=== PATIENT | female | born 1970 | race Caucasian/White ===

== ENCOUNTER 2017-01-26 10:55 | Day surgery (SDC) | payer OTHER ==
[~2017-01-26] VITALS: Ht 179.1 cm; Wt 99.8 kg
[~2017-01-26 10:55] MED LIST: Actigall PO; BACLOFEN10 MG PO; CYMBALTA60 MG PO; ELAVIL25 MG PO; ELAVIL50 MG PO; MELOXICAM7.5 MG PO; MOBIC15 MG PO; MOTRIN600 MG PO; MULTIVITAMIN1 EAC2 PO; NAPROXEN500 MG PO; NEURONTIN300 MG PO; NEURONTIN600 MG PO; NOHOMEMEDS; NORCO 10/3251 TABLET PO; NORCO 5/3251 TABLET PO; PERCOCET 10/1 TABLET PO; PERCOCET 5/31 TABLET PO; PREVACID 24HR15 MG PO; PREVACID15 MG PO; Protonix PO; RELAFEN750 MG PO; TOVIAZ4 MG; TYLENOL ARTHRI650 M2 PO; Ultram PO; VITAMIN D31000 UNIT PO; ZANAFLEX4 MG PO; ZANTAC150 MG PO; percocet; zanaflex
== END 2017-01-26 12:42 | disposition home or self-care (01) ==
LOC: PAIN 10:55
PROC: 3E0S33Z Introduction of Anti-inflammatory into Epidural Space, Percutaneous Approach (ICD-10-PCS; principal; 2017-01-26)
DX: M54.16 Radiculopathy, lumbar region (principal); F41.9 Anxiety disorder, unspecified; M51.36 Other intervertebral disc degeneration, lumbar region; M48.06 Spinal stenosis, lumbar region; M96.1 Postlaminectomy syndrome, not elsewhere classified; K21.9 Gastro-esophageal reflux disease without esophagitis; K76.0 Fatty (change of) liver, not elsewhere classified; E78.5 Hyperlipidemia, unspecified; Z79.891 Long term (current) use of opiate analgesic; E66.9 Obesity, unspecified; Z98.1 Arthrodesis status; Z68.31 Body mass index [BMI] 31.0-31.9, adult; Z88.8 Allergy status to other drugs, medicaments and biological substances
CPT/HCPCS: J1100; J2250; J3010

== ENCOUNTER 2017-03-10 08:58 | Day surgery (SDC) | payer OTHER ==
[~2017-03-10] VITALS: Ht 179.1 cm; Wt 99.8 kg
[~2017-03-10 08:58] MED LIST changes: +LYRICA50 MG PO
== END 2017-03-10 10:45 | disposition home or self-care (01) ==
LOC: PAIN 08:58 → SDC 09:30 → PAIN 10:45
DX: M47.26 Other spondylosis with radiculopathy, lumbar region (principal); M51.16 Intervertebral disc disorders with radiculopathy, lumbar region; M48.06 Spinal stenosis, lumbar region; M54.12 Radiculopathy, cervical region; K21.9 Gastro-esophageal reflux disease without esophagitis; E66.9 Obesity, unspecified; Z68.31 Body mass index [BMI] 31.0-31.9, adult; Z79.891 Long term (current) use of opiate analgesic
CPT/HCPCS: J1100; J2250; J3010

== ENCOUNTER 2017-05-25 12:01 | Day surgery (SDC) | payer OTHER ==
[~2017-05-25] VITALS: Ht 177.8 cm; Wt 99.8 kg
[~2017-05-25 12:01] MED LIST changes: -ELAVIL25 MG PO; +ELAVIL75 MG PO
== END 2017-05-25 14:48 | disposition home or self-care (01) ==
LOC: PAIN 12:01
DX: M47.26 Other spondylosis with radiculopathy, lumbar region (principal); M51.16 Intervertebral disc disorders with radiculopathy, lumbar region; M96.1 Postlaminectomy syndrome, not elsewhere classified; M54.12 Radiculopathy, cervical region; M48.06 Spinal stenosis, lumbar region; M79.7 Fibromyalgia; E78.5 Hyperlipidemia, unspecified; Z86.718 Personal history of other venous thrombosis and embolism; Z79.891 Long term (current) use of opiate analgesic; E66.9 Obesity, unspecified; Z68.31 Body mass index [BMI] 31.0-31.9, adult
CPT/HCPCS: J1030; J2250; J3010; S0020

== ENCOUNTER 2017-06-01 11:58 | Day surgery (SDC) | payer OTHER ==
[~2017-06-01] VITALS: Ht 177.8 cm; Wt 99.8 kg
[2017-06-01] MEDS ORDERED: NAPROXEN500 MG PO (12:23)
== END 2017-06-01 14:00 | disposition home or self-care (01) ==
LOC: PAIN 11:58
DX: M47.26 Other spondylosis with radiculopathy, lumbar region (principal); M51.16 Intervertebral disc disorders with radiculopathy, lumbar region; M79.1 Myalgia; M54.12 Radiculopathy, cervical region; K21.9 Gastro-esophageal reflux disease without esophagitis; E78.5 Hyperlipidemia, unspecified; M48.06 Spinal stenosis, lumbar region; E66.9 Obesity, unspecified; Z68.31 Body mass index [BMI] 31.0-31.9, adult; Z79.891 Long term (current) use of opiate analgesic; Z86.718 Personal history of other venous thrombosis and embolism
CPT/HCPCS: J1030; J2250; J3010; S0020

== ENCOUNTER 2017-08-27 11:59 | Day surgery (SDC) | payer OTHER ==
[~2017-08-27] VITALS: Ht 180.3 cm; Wt 99.3 kg
[~2017-08-27 11:59] MED LIST changes: +CYMBALTA30 MG PO
== END 2017-08-27 14:00 | disposition home or self-care (01) ==
LOC: PAIN 11:59 → SDC 12:30 → PAIN 14:00
DX: M47.22 Other spondylosis with radiculopathy, cervical region (principal); M50.121 Cervical disc disorder at C4-C5 level with radiculopathy; M25.78 Osteophyte, vertebrae; M96.1 Postlaminectomy syndrome, not elsewhere classified; M47.26 Other spondylosis with radiculopathy, lumbar region; M51.16 Intervertebral disc disorders with radiculopathy, lumbar region; M48.061 Spinal stenosis, lumbar region without neurogenic claudication; K21.9 Gastro-esophageal reflux disease without esophagitis; M79.7 Fibromyalgia; E78.5 Hyperlipidemia, unspecified; Z79.891 Long term (current) use of opiate analgesic
CPT/HCPCS: J1030; J1885; J2250; J3010; S0020

== ENCOUNTER 2017-09-03 11:57 | Day surgery (SDC) | payer OTHER ==
[~2017-09-03] VITALS: Ht 180.3 cm; Wt 99.3 kg
== END 2017-09-03 13:50 | disposition home or self-care (01) ==
LOC: PAIN 11:57 → SDC 12:30 → PAIN 13:50
DX: M54.12 Radiculopathy, cervical region (principal); M50.10 Cervical disc disorder with radiculopathy, unspecified cervical region; M96.1 Postlaminectomy syndrome, not elsewhere classified; M79.7 Fibromyalgia; M47.26 Other spondylosis with radiculopathy, lumbar region; M51.16 Intervertebral disc disorders with radiculopathy, lumbar region; M48.061 Spinal stenosis, lumbar region without neurogenic claudication; K21.9 Gastro-esophageal reflux disease without esophagitis; Z79.891 Long term (current) use of opiate analgesic
CPT/HCPCS: J1030; J2250; J3010; S0020

== ENCOUNTER 2018-02-13 10:43 | Emergency (ER) | payer OTHER ==
[~2018-02-13] VITALS: Ht 180.3 cm; Wt 110.5 kg
[~2018-02-13 10:43] MED LIST changes: +ZOMIG ZMT2.5 MG PO
[2018-02-13 12:36] LABS: HEMATOCRIT 42.6 % (36.0-46.0); HEMOGLOBIN 14.3 G/DL (11.9-15.5); MCH 29.8 PG (29.0-34.0); MCHC 33.6 G/DL (30.0-36.0); MCV 88.8 FL (83-99); PLATELET COUNT 196 K/uL (156-360); RBC DIS.WIDTH-CV 12.6 % (11.8-14.6); RBC DIS.WIDTH-SD 41.2 % (39-53); WHITE BLOOD COUNT 5.1 K/uL (4.1-10.2)
[2018-02-13 12:52] LABS: CHLORIDE 104 mEq/L (99-109); POTASSIUM 4.5 mEq/L (3.7-5.4); SODIUM 141 mEq/L (136-147)
[2018-02-13 12:53] LABS: GLUCOSE 103 mg/dL (70-99)
[2018-02-13 12:57] LABS: CREATININE 0.7 mg/dL (0.6-1.3); GFR ESTIMATE (CALCULATED) > 59 mL/min/
[2018-02-13 12:58] LABS: UREA NITROGEN (BUN) 12 mg/dL (9-23)
[2018-02-13 13:06] LABS: ERTH.SED.RATE 25 MM/HR (0-20)
[2018-02-13 14:09] LABS: C-REACTIVE PROTEIN 6.1 MG/L (0-10)
[2018-02-13 16:55] LABS: APPEARANCE HAZY-YELLOW; RED CELL COUNT 2000 /MM^3 (0-1); WHITE CELL COUNT 2266 /MM^3 (0-200.0)
[2018-02-13 17:44] LABS: SYNOVIAL FLUID GLUCOSE < 10 MG/DL
[2018-02-13 18:02] LABS: MONONUCLEAR WBC'S 34 %; POLYNUCLEAR WBC'S 66 % (0-25); SYNOVIAL FLUID EOSINOPHILS 0 % (0-25)
[2018-02-13] MEDS ORDERED: PERCOCET 5/31 TABLET PO (18:38)
[2018-02-13] MEDS ORDERED: NAPROSYN500 MG PO (18:38)
[2018-02-13 19:07] VITALS: BP 139/83
[2018-02-14 07:32] LABS: CRYSTALS NO CRYSTALS SEEN
== END 2018-02-13 19:08 | disposition home or self-care (01) ==
LOC: EME 10:43
PROVIDERS: Physician Assistant
PROC: 0M9N3ZZ Drainage of Right Knee Bursa and Ligament, Percutaneous Approach (ICD-10-PCS; principal; 2018-02-13)
DX: M25.461 Effusion, right knee (principal); M25.462 Effusion, left knee; M06.9 Rheumatoid arthritis, unspecified; M19.90 Unspecified osteoarthritis, unspecified site; Z88.5 Allergy status to narcotic agent
CPT/HCPCS: 73564; 80048; 82945 91; 84157; 84550; 85027; 85651; 86140; 87205; 89051; 99281; 99284; J1885; J3010; S0020

== ENCOUNTER 2018-05-10 09:53 | Day surgery (SDC) | payer OTHER ==
[~2018-05-10] VITALS: Ht 180.3 cm; Wt 99.3 kg
[~2018-05-10 09:53] MED LIST changes: +NAPROSYN500 MG PO
== END 2018-05-10 11:47 | disposition home or self-care (01) ==
LOC: PAIN 09:53
PROC: 3E0T3TZ Introduction of Destructive Agent into Peripheral Nerves and Plexi, Percutaneous Approach (ICD-10-PCS; principal; 2018-05-10)
PROC: BR161ZZ Fluoroscopy of Lumbar Facet Joint(s) using Low Osmolar Contrast (ICD-10-PCS; principal; 2018-05-10)
DX: M47.816 Spondylosis without myelopathy or radiculopathy, lumbar region (principal); M54.16 Radiculopathy, lumbar region; M51.36 Other intervertebral disc degeneration, lumbar region; M79.7 Fibromyalgia; M48.061 Spinal stenosis, lumbar region without neurogenic claudication; M54.12 Radiculopathy, cervical region; K21.9 Gastro-esophageal reflux disease without esophagitis; E78.5 Hyperlipidemia, unspecified; E66.9 Obesity, unspecified; Z68.35 Body mass index [BMI] 35.0-35.9, adult; Z88.5 Allergy status to narcotic agent; Z88.8 Allergy status to other drugs, medicaments and biological substances; Z79.891 Long term (current) use of opiate analgesic
CPT/HCPCS: J1030; J1885; J2250; J3010; S0020